=== PATIENT | male | born 1955 | race Caucasian/White ===

== ENCOUNTER 2019-07-11 07:53 | Emergency (ER) | payer BC ==
[~2019-07-11] VITALS: Ht 175.3 cm; Wt 80.0 kg
[~2019-07-11 07:53] MED LIST: DILT180C87 PO; GLIP10TA10 PO; LISI-186 PO; MIRT45TA83 PO; TAMS-11 MT
[2019-07-11] MEDS ORDERED: ONDANSETRON HCL 4MG/2ML INJ IV STA (08:04)
[2019-07-11] MEDS ORDERED: SODIUM CHLORIDE 0.9% 1,000 ML IV ONE (08:04)
[2019-07-11] MEDS ORDERED: FAMOTIDINE 20MG/2ML VIAL IV STA (08:04)
[2019-07-11 08:24] LABS: BASOPHILS % 0.9 % (0.0-2.0); EOSINOPHILS % 2.2 % (0.0-5.0); HEMATOCRIT. 45.8 % (42.0-52.0); HEMOGLOBIN. 16.1 g/dL (14.0-18.0); LYMPHOCYTES % 29.3 % (20.0-50.0); MEAN CORPUSCULAR HEMOGLOBIN 33.1 pg (28.0-32.0); MEAN PLATELET VOLUME 7.5 fl (7.4-10.4); NEUTROPHILS % 59.6 % (40.0-76.0); PLATELET 244 x1000/uL (130-400); RED BLOOD CELL COUNT 4.87 mill/uL (4.7-6.1); RED CELL DISTRIBUTION WIDTH 13.3 % (11.6-14.6)
[2019-07-11 08:29] LABS: CHLORIDE 100 mEq/L (98-107)
[2019-07-11 08:33] LABS: ETHANOL BLOOD 165 mg/dL; PROTHROMBIN TIME 10.5 sec (9.6-11.0)
[2019-07-11] MEDS ORDERED: MORPHINE SULFATE 4 MG/ML CPJ (NOT FOR IM USE) IV ONE (09:15)
[2019-07-11 10:07] LABS: CLARITY URINE CLEAR (CLEAR); COLOR URINE YELLOW (YELLOW); KETONES URINE TRACE (NEGATIVE); LEUKOCYTE ESTERASE URINE NEGATIVE (NEGATIVE); NITRITE URINE NEGATIVE (NEGATIVE); OCCULT BLOOD URINE NEGATIVE (NEGATIVE); PROTEIN URINE TRACE (NEGATIVE); SPECIFIC GRAVITY URINE 1.015 (1.005-1.030); UROBILINOGEN URINE 0.2 E.U./dL (0.2-1.0)
[2019-07-11 10:25] LABS: *AMPHETAMINES SCREEN URINE NEGATIVE (NEGATIVE); *BARBITURATES SCREEN URINE NEGATIVE (NEGATIVE)
[2019-07-11 10:26] LABS: *BENZODIAZEPINES SCREEN URINE PRESUMTIVE POSITIVE (NEGATIVE); *COCAINE SCREEN URINE NEGATIVE (NEGATIVE); CANNABINOID URINE SCREEN PRESUMTIVE POSITIVE (NEGATIVE); METHADONE URINE SCREEN NEGATIVE (NEGATIVE); OPIATES URINE SCREEN PRESUMTIVE POSITIVE (NEGATIVE); PHENCYCLIDINE URINE SCREEN NEGATIVE (NEGATIVE)
[2019-07-11] MEDS ORDERED: LORAZEPAM 2MG/ML CPJ IV ONE (11:30)
[2019-07-11 14:01] VITALS: BP 146/84
== END 2019-07-11 14:19 | disposition home or self-care (01) ==
LOC: ER 08:08
DX: R10.13 Epigastric pain (principal); F10.229 Alcohol dependence with intoxication, unspecified; I12.9 Hypertensive chronic kidney disease with stage 1 through stage 4 chronic kidney disease, or unspecified chronic kidney disease; E11.22 Type 2 diabetes mellitus with diabetic chronic kidney disease; N18.9 Chronic kidney disease, unspecified; Y90.6 Blood alcohol level of 120-199 mg/100 ml; Z91.041 Radiographic dye allergy status
CPT/HCPCS: 36415; 71045; 80053; 80305; 80320; 81003; 83690; 84484; 85025; 85610; 93005; 96374; 96375; 99285; J2060; J2270; J2405; J3490; J7030; G0480